=== PATIENT | female | born 1960 | race Caucasian/White ===

== ENCOUNTER 2020-12-08 14:32 | Outpatient (REF) | payer OTHER, SELFPAY ==
--- NOTE | 2020-12-08 16:01 | XR_ITS ---
EXAMINATION: XR CHEST CLINICAL INFORMATION: Marked cysts COMPARISON: None TECHNIQUE: 2 views of the chest were obtained. FINDINGS: There is hyperinflation lungs. No pneumothorax or pleural effusion is appreciated. Heart normal size. No pulmonary edema. XR/XR chest 2V IMPRESSION: No acute disease.
== END 2020-12-08 14:33 | disposition home or self-care (01) ==
LOC: HO.XRAY 14:32
PROVIDERS: PCP Internal Medicine; Visit Provider Hospitalist
DX: R04.2 Hemoptysis (principal)
CPT/HCPCS: 71046

== ENCOUNTER 2021-05-09 09:47 | Outpatient (REF) | payer OTHER, SELFPAY ==
[2021-05-09 13:49] LABS: MANUAL DIFF FLAG NO
[2021-05-09 14:11] LABS: Basophils Percent Auto 0.7 % (0-2); Eosinophils Absolute Auto 0.1 X10*3/uL (0.0-0.4); Hematocrit 44.8 % (37-47); Hemoglobin 14.4 g/dl (12.0-16.0); Imm Gran Abs Auto 0.01 X10*3/uL (0.00-0.03); Imm Gran Pct Auto 0.2 % (0.0-0.4); Lymphocytes Absolute Auto 1.7 X10*3/uL (1.2-4.9); Lymphocytes Percent Auto 39.1 % (20-40); Mean Corpuscular HGB Conc 32.1 g/dl (31.0-35.0); Mean Corpuscular Hemoglobin 28.3 pg (27.0-33.0); Mean Platelet Volume 9.4 fL (9.4-12.3); Monocytes Absolute Auto 0.4 X10*3/uL (0.1-1.2); Monocytes Percent Auto 8.5 % (2-11); Neutrophils Absolute Auto 2.1 X10*3/uL (2.0-8.3); Neutrophils Percent Auto 48.5 % (45-73); Platelet Count 225 X10*3/uL (160-400); Red Blood Count 5.09 X10*6/uL (4.20-5.50); Red Cell Distribution Width 12.8 % (11.0-16.0); White Blood Count 4.4 X10*3/uL (4.8-10.8)
[2021-05-09 14:17] LABS: Anion Gap 14 (12-20); Blood Urea Nitrogen 14 mg/dL (9-16); Calcium 9.6 mg/dL (8.4-10.2); Carbon Dioxide 27 mmol/L (22-29); Chloride 104 mmol/L (96-108); Estimated Glomerular Filt Rate > 60; Glucose Random 91 mg/dL (60-115); Potassium 4.2 mmol/L (3.3-5.1); Sodium 141 mmol/L (135-145)
[2021-05-09 14:22] LABS: B Type Natriuretic Peptide 25 pg/mL (<100)
[2021-05-09 14:55] LABS: D Dimer 1100 NG/ML
--- NOTE | 2021-05-09 17:31 | PFT_ITS ---
INDICATIONS: COPD and dyspnea. SPIROMETRY: The FEV1 to FVC 84% with an FEV1 of 2.79 L, which is 108% predicted, and an FVC of 3.32 L, which is 99% predicted. No significant response to bronchodilators noted. Maximum voluntary ventilation 118% predicted. LUNG VOLUMES: Total lung capacity 99% predicted with residual volume of 123% predicted. Expiratory reserve volume of 96% predicted. DIFFUSION CAPACITY: DLCO 77% predicted. COMPARISONS: Not available. COMMENTS: From the respiratory therapist, the patient did have a difficult time after her maneuver, developing significant shortness of breath. She had to lay down, improving her symptoms. INTERPRETATION: No obstructive nor restrictive ventilatory defects identified. No significant response to bronchodilators noted. Normal maximum voluntary ventilation. Lung volumes with a normal total lung capacity, however based on the residual volume, there is a trend of air trapping, which could be due from small airways disease. In addition to that, there is a mild isolated diffusion impairment. Therefore, underlying pulmonary vascular conditions need to be considered. If asthma is in the differential, methacholine challenge may be helpful in assessing for hyper-reactive airways, otherwise clinical correlation warranted. Ji Mckay MD MR/MODL / [id number]
[2021-05-11 23:37] LABS: Anti Nuclear Antibody Screen POSITIVE (NEGATIVE)
[2021-05-12 14:36] LABS: Cyclic Citrullinated Peptide <16 UNITS
[2021-05-12 15:02] LABS: Anti DNA DS Antibody <1 IU/mL; Myeloperoxidase Antibody <1.0 AI; Proteinase 3 PR3 Antibodies <1.0 AI; Scleroderma 70 Antibody <1.0 NEG AI (<1.0 NEG)
== END 2021-05-09 09:48 | disposition home or self-care (01) ==
LOC: HO.RESP 09:47
PROVIDERS: PCP Internal Medicine; Visit Provider Hospitalist
DX: R07.9 Chest pain, unspecified (principal); J44.9 Chronic obstructive pulmonary disease, unspecified; R06.00 Dyspnea, unspecified; K74.3 Primary biliary cirrhosis; L94.0 Localized scleroderma [morphea]; R04.2 Hemoptysis
CPT/HCPCS: 36415; 80048; 82785; 83880; 85025; 85379; 86003; 86021; 86038; 86039; 86200; 86225; 86235; 94060; 94727; 94729

== ENCOUNTER 2021-05-11 13:02 | Outpatient (REF) | payer OTHER, SELFPAY ==
--- NOTE | ~2021-05-11 | CT_ITS ---
EXAMINATION: CT ANGIOGRAM OF THE CHEST WITH AND WITHOUT CONTRAST (CT PULMONARY ANGIOGRAM FOR PE) CLINICAL INFORMATION: Reason for Exam R79.89 - Other specified abnormal findings of blood chemi... COMPARISON: None TECHNIQUE: Prior to contrast administration, noncontrast localization images were obtained. Subsequently, multidetector volumetric imaging was performed from the thoracic inlet to below the diaphragms following the administration of 80 mL Omnipaque 350 intravenous contrast. No contrast reaction reported Sagittal, coronal, and MIP oblique sagittal reformatted images were obtained on the CT workstation, uploaded to PACS, and reviewed. This CT examination was performed using dose optimization techniques as appropriate, variously including the following: *Automated exposure control *Adjustment of mA and/or kV according to patient size (this includes techniques or standardized protocols for targeted exams where dose is matched to indication/reason for exam; i.e. extremities or head) *Use of iterative reconstruction technique Total exam dose-length product 77 mGy-cm FINDINGS: QUALITY OF STUDY/CONTRAST BOLUS: Satisfactory. PULMONARY ARTERIES: No central or segmental pulmonary emboli. THORACIC AORTA: No aneurysm or dissection. LUNG: The lungs are well-expanded and clear of acute pneumonic process. There is bibasilar and dependent atelectasis. There is bilateral apical parenchymal scarring and apical pleural thickening. There is no pulmonary nodule, mass or consolidation. PLEURA: Minimal bilateral apical pleural thickening. No pleural effusion or calcification seen. MEDIASTINUM: The heart size and the great vessels are normal caliber. No perinephric or effusion seen central trachea and the bronchi widely patent. No abnormal mediastinal lymph nodes or mass seen. No evidence of septal bowing or right heart strain. CHEST WALL/AXILLA: No axillary or internal mammary lymphadenopathy. OSSEOUS STRUCTURES: No lytic or sclerotic process seen. UPPER ABDOMEN: Visualized liver and spleen is unremarkable. No reflux of contrast into the hepatic veins to suggest elevated right heart pressures. CT/CT angio chest PE protocol IMPRESSION: No evidence of PE. No evidence of aortic dissection. Bilateral apical pleural and parenchymal scarring and bibasilar dependent atelectasis. VTE: negative
[2021-05-11] MEDS: iohexoL 350 MG/ML 100 ML INFUS..BTL IV (14:56)
== END 2021-05-11 13:03 | disposition home or self-care (01) ==
LOC: HO.CT 13:02
PROVIDERS: Visit Provider Hospitalist
DX: R07.1 Chest pain on breathing (principal); R79.89 Other specified abnormal findings of blood chemistry
CPT/HCPCS: 71275; Q9967